=== PATIENT | female | born 1955 | race Hispanic/Latino ===

== ENCOUNTER → 2024-01-01 | Outpatient (CLI) | payer OTHER ==
[2024-01-01 09:08] LABS: INR <= 0.93 (0.85-1.15); PROTHROMBIN TIME 10.8 SEC (9.6-11.6)
[2024-01-01 09:09] LABS: PARTIAL THROMBOPLASTIN TIME 29.8 SEC (26.3-35.5)
== END | disposition home or self-care (01) ==
LOC: RAH 08:21
PROVIDERS: ATTEND Family Medicine
DX: D48.7 Neoplasm of uncertain behavior of other specified sites (principal); E04.1 Nontoxic single thyroid nodule; I10 Essential (primary) hypertension; E78.5 Hyperlipidemia, unspecified; M19.90 Unspecified osteoarthritis, unspecified site; Z82.49 Family history of ischemic heart disease and other diseases of the circulatory system; Z88.5 Allergy status to narcotic agent; Z83.3 Family history of diabetes mellitus; Z79.1 Long term (current) use of non-steroidal anti-inflammatories (NSAID); Z79.899 Other long term (current) drug therapy; Z90.49 Acquired absence of other specified parts of digestive tract; Z90.710 Acquired absence of both cervix and uterus
CPT/HCPCS: 10005; 36415; 76942; 85610; 85730; 88173; 88305

== ENCOUNTER → 2024-02-12 | Outpatient (CLI) | payer OTHER | END | disposition home or self-care (01) | LOC: RAH 14:05 | PROVIDERS: ATTEND Internal Medicine Cardiovascular Disease | DX: Z13.6 Encounter for screening for cardiovascular disorders (principal) | CPT/HCPCS: 75571 ==

== ENCOUNTER → 2024-03-15 | Outpatient (CLI) | payer OTHER | END | disposition home or self-care (01) | LOC: RAH 09:01 | PROVIDERS: ATTEND Otolaryngology | DX: E07.89 Other specified disorders of thyroid (principal); E04.2 Nontoxic multinodular goiter | CPT/HCPCS: 76536 ==

== ENCOUNTER → 2024-10-10 | Outpatient (CLI) | payer OTHER ==
--- NOTE | 2024-10-10 13:49 | HMCIMG ---
MR SHOULDER LEFT WO REASON: PAIN COMPARISON: None TECHNIQUE: Routine imaging protocol was performed in the axial, oblique coronal and oblique sagittal plane with T1, proton density, T2 and gradient recalled sequences. FINDINGS: There is a full-thickness tear in the rotator cuff. There is 1.5 cm separation between the proximal and distal fragment. There is some fluid in subacromial bursa as well as in the glenohumeral joint space. There is moderate cartilage loss in the glenohumeral joint space. There is normal appearance of the acromioclavicular joint, no evidence of osteophyte or impingement. There is fluid around the biceps tendon suggesting possible tendinitis. There are no focal osseous lesions. Soft tissues appear unremarkable. IMPRESSION: 1. Full-thickness tear of the rotator cuff which is distracted by 1.5 cm. 2. Moderate cartilage loss clinical joint space. 3. Fluid surrounding the biceps tendon.
== END | disposition home or self-care (01) ==
LOC: RAH 12:03
PROVIDERS: ATTEND Family Medicine
DX: M75.122 Complete rotator cuff tear or rupture of left shoulder, not specified as traumatic (principal); M25.412 Effusion, left shoulder; M94.8X1 Other specified disorders of cartilage, shoulder; M25.512 Pain in left shoulder
CPT/HCPCS: 73221